=== PATIENT | male | born 1960 | race Caucasian/White ===

== ENCOUNTER 2016-11-04 17:26 | Emergency (ER) | payer MEDICAID ==
[~2016-11-04] VITALS: Ht 175.3 cm; Wt 93.0 kg
[~2016-11-04 17:26] MED LIST: ALBU6.7H INH; ASPI325T PO; CYMB60CA PO; GABA600T PO; HYDR-3535 PO; LANTUS2P SQ; LEVO25TA4 PO; LISI10TA3 PO; LOVA20TA PO; METF1000 PO; PRIL40CA PO; VALT500T PO
[2016-11-04 17:30] VITALS: BP 194/110; PULSE 70; RESP 16; TEMP 98.4; O2SAT 99
[2016-11-04] MEDS ORDERED: PROPARACAINE HCL 0.5% OPHT SOLN 15 ML BTL EACH EYE ONE (17:45)
[2016-11-04] MEDS ORDERED: OMEP40CA2 PO (17:50)
--- NOTE | 2016-11-04 17:53 | PD ---
HPI Chief Complaint: Eye Problems/Injury Time Seen by Provider: 17:48 Travel History International Travel<30 days: No Contact w/Intl Traveler<30days: No Traveled to known affect area: No History of Present Illness HPI 55-year-old male that presents to the ED for evaluation of injury to his right eye. Per patient he was trying to get the insect of his head and he accidentally cut himself with a putty knife. Per patient this happened about 3 hours ago. He states that he has intermittent pain in the eye. He is able to see but slightly blurry secondary to tearing. He states the pain is more with movement of the eye. No allergies to medication. No chest pain or shortness of breath. Other medical injuries reported. Tetanus up-to-date per patient. Pain is 8 out of 10. Does not use glasses or contacts. PFSH Past Medical History Hx Anticoagulant Therapy: Yes Arthritis: Yes Anxiety: Yes Depression: Yes Cancer: No Cardiovascular Problems: Yes (HTN, ON MEDS) High Cholesterol: Yes COPD: No (states uncertain ??) Cerebrovascular Accident: Yes Coronary Artery Disease: Yes Diabetes: Yes Diminished Hearing: No Endocrine: Yes Gastrointestinal Disorders: Yes (GERD) GERD: Yes Genitourinary: No Hepatitis: No Hiatal Hernia: No Hypertension: Yes Immune Disorder: No Musculoskeletal: Yes (BACK PAIN) Neurologic: Yes (STROKE 2010 DIFFICULTY WITH SPEECH) Psychiatric: Yes (DEPRESSION) Reproductive: No Respiratory: Yes Immunizations Current: Yes Thyroid Disease: Yes Ulcer: Yes Past Surgical History AICD: No Eye Surgery: Yes (LASIK, CATARACT SURGERY) Joint Replacement: No Pacemaker: No Tonsillectomy: Yes Other Surgery: Yes (HERNIA REPAIR) Social History Alcohol Use: No (QUIT 2012) Tobacco Use: No (QUIT 10/2014 and started back smokes 1/4 ppd cigs) Substance Use: Yes (MARIJUANA ) Allergies-Medications (Allergen,Severity, Reaction): Coded Allergies: No Known Allergies (Verified , 11/04/16) Reported Meds & Prescriptions Reported Meds & Active Scripts Active Aspirin 325 Mg Tab 325 Mg PO DAILY Lisinopril 10 Mg Tab 10 Mg PO Q12HR Valtrex (Valacyclovir HCl) 500 Mg Tab 1,000 Mg PO Q8HR 7 Days Reported Prilosec (Omeprazole) 40 Mg Cap 40 Mg PO DAILY Gabapentin 600 Mg Tab 600 Mg PO TID Lortab (Hydrocodone-Acetaminophen) 10-325 Mg Tab 1 Tab PO Q4H PRN Metformin (Metformin HCl) 1,000 Mg Tab 1,000 Mg PO BIDPC With meals Lovastatin 20 Mg Tab 20 Mg PO DAILY Levothyroxine (Levothyroxine Sodium) 25 Mcg Tab 25 Mcg PO DAILY Lantus Inj (Insulin Glargine) 1,000 Unit/10 Ml Vial 25 Units SQ BID Cymbalta DR (Duloxetine HCl) 60 Mg Capdr 60 Mg PO DAILY Proventil Hfa 6.7 GM Inh (Albuterol Sulfate) 90 Mcg/Act Aer 1 Puff INH Q4H PRN Review of Systems Except as stated in HPI: all other systems reviewed are Neg Physical Exam Narrative GENERAL: SKIN: Warm and dry. HEAD: Atraumatic. Normocephalic. EYES: Pupils equal and round 4 mm reactive to light and accommodation. No scleral icterus. No injection or drainage. EOM intact bilaterally. Peripheral vision intact bilaterally. Visual likely is 20/40 on the right and 20/20 on the left. Fluorescein stain revealed what appears to be a very superficial corneal abrasion on the 7:00 area of the cornea. About 2 mm in diameter. No foreign body noted. Ophthalmic exam reveals some papilledema or vessel disease. Of note patient does chronically have brown discoloration of his wrist between the 3:00 and 6:00 area of the iris. ENT: No nasal bleeding or discharge. Mucous membranes pink and moist. Tongue is midline. No uvula deviation. NECK: Trachea midline. No JVD. CARDIOVASCULAR: Regular rate and rhythm. RESPIRATORY: No accessory muscle use. Clear to auscultation. Breath sounds equal bilaterally. GASTROINTESTINAL: Abdomen soft, non-tender, nondistended. Hepatic and splenic margins not palpable. MUSCULOSKELETAL: Extremities without clubbing, cyanosis, or edema. No obvious deformities. NEUROLOGICAL: Awake and alert. No obvious cranial nerve deficits. Motor grossly within normal limits. Five out of 5 muscle strength in the arms and legs. Normal speech. PSYCHIATRIC: Appropriate mood and affect; insight and judgment normal. Data Data Last Documented VS Vital Signs Date Time Temp Pulse Resp B/P Pulse Ox O2 Delivery O2 Flow Rate FiO2 11/04/16 17:30 98.4 70 16 194/110 99 Orders Proparacaine 0.5% Opth Soln (Alcaine 0.5 (11/04/16 17:45) [facility] Medical Decision Making Medical Screen Exam Complete: Yes Emergency Medical Condition: Yes Medical Record Reviewed: Yes Differential Diagnosis corneal abrasion versus foreign body versus eye injury Narrative Course 55-year-old male that presents to the ED for evaluation of right eye injury. Patient was properly examined and was found to have signs and symptoms consistent appears to be a superficial corneal Abrasion. At this time I recommend prescription for erythromycin ointment applied to the wound to prevent infection. Close follow with PCP. Motrin for pain. Patient was told that the pain in the eye should improve in the next 24-48 hours. Follow-up with eye doctor if he doesn't. See ED for worsening symptoms. Diagnosis Primary Impression: Corneal abrasion, left Qualified Code: S05.02XA - Corneal abrasion, left, initial encounter Referrals: [place]ia Norton MD Patient Instructions: General Instructions Additional Instructions: Apply ointment as prescribed. Follow-up with PCP. See ED for worsening symptoms. Apply ice or warm compresses to the eye as needed. Motrin for pain as needed. Med/Other Pt SpecificInfo: Prescription(s) given Disposition: 01 DISCHARGE HOME Condition: Everette Stringer Nov 04, 2016 17:53
[2016-11-04] MEDS ORDERED: ERYTOIN10 RIGHT EYE (17:57)
== END 2016-11-04 18:04 | disposition home or self-care (01) ==
LOC: PHEFT 17:26
DX: S05.02XA Injury of conjunctiva and corneal abrasion without foreign body, left eye, initial encounter (principal); W26.0XXA Contact with knife, initial encounter
CPT/HCPCS: 99283

== ENCOUNTER 2017-01-12 06:54 | Inpatient (IN) | payer MEDICAID ==
[~2017-01-12] VITALS: Ht 175.3 cm; Wt 100.9 kg
[~2017-01-12 06:54] MED LIST changes: +ERYTOIN10 RIGHT EYE; +OMEP40CA2 PO; -PRIL40CA PO; -VALT500T PO
[2017-01-12 07:02] VITALS: BP 191/93; PULSE 76; RESP 18; TEMP 97.8; O2SAT 100
--- NOTE | 2017-01-12 07:25 | PD ---
HPI Chief Complaint: Skin Problem Time Seen by Provider: 07:15 Travel History International Travel<30 days: No Contact w/Intl Traveler<30days: No Traveled to known affect area: No History of Present Illness HPI The patient is a 56-year-old male who presents to the emergency department for finger pain. The patient thinks he suffered an injury to the volar aspect of the fourth digit, left hand, 2 days ago while cleaning debris. He now notes the affected finger is swollen with a necrotic area of the flexor surface. He does complain of increasing pain and swelling over the affected area. He now notes redness that is streaking up the medial aspect the left forearm to the antecubital fossa. He denies any fever, chills, or sweats. The patient does have a history of diabetes and takes insulin and metformin. The patient's primary physician is Dr. Jovi Arzola. The patient's symptoms are moderate, possibly exacerbated after an injury to the fourth digit of the left hand, there are no acute alleviating factors. PFSH Past Medical History Hx Anticoagulant Therapy: Yes Arthritis: Yes Anxiety: Yes Depression: Yes Cancer: No Cardiovascular Problems: Yes (HTN) High Cholesterol: Yes Cerebrovascular Accident: Yes Coronary Artery Disease: Yes Diabetes: Yes Patient Takes Glucophage: Yes Diminished Hearing: No Endocrine: Yes Gastrointestinal Disorders: Yes (GERD) GERD: Yes Genitourinary: No Hepatitis: No Hiatal Hernia: No Hypertension: Yes Immune Disorder: No Musculoskeletal: Yes (BACK PAIN) Neurologic: Yes (STROKE 2010 DIFFICULTY WITH SPEECH) Psychiatric: Yes (DEPRESSION) Reproductive: No Respiratory: Yes Immunizations Current: Yes Thyroid Disease: Yes Ulcer: Yes Influenza Vaccination: Yes Past Surgical History AICD: No Eye Surgery: Yes (LASIK, CATARACT SURGERY) Joint Replacement: No Pacemaker: No Tonsillectomy: Yes Other Surgery: Yes (HERNIA REPAIR) Social History Alcohol Use: No (QUIT 2012) Tobacco Use: No (QUIT 10/2014 and started back smokes 1/4 ppd cigs) Substance Use: Yes (MARIJUANA ) Allergies-Medications (Allergen,Severity, Reaction): Coded Allergies: No Known Allergies (Verified , 01/12/17) Reported Meds & Prescriptions Reported Meds & Active Scripts Active Aspirin 325 Mg Tab 325 Mg PO DAILY Lisinopril 10 Mg Tab 10 Mg PO Q12HR Reported Januvia (Sitagliptin Phosphate) 25 Mg Tab 25 Mg PO DAILY Omeprazole 40 Mg Cap 40 Mg PO DAILY Gabapentin 600 Mg Tab 600 Mg PO TID Lortab (Hydrocodone-Acetaminophen) 10-325 Mg Tab 1 Tab PO Q4H PRN Metformin (Metformin HCl) 1,000 Mg Tab 1,000 Mg PO BIDPC With meals Lovastatin 20 Mg Tab 20 Mg PO DAILY Levothyroxine (Levothyroxine Sodium) 25 Mcg Tab 25 Mcg PO DAILY Lantus Inj (Insulin Glargine) 1,000 Unit/10 Ml Vial 25 Units SQ BID Cymbalta DR (Duloxetine HCl) 60 Mg Capdr 60 Mg PO DAILY Proventil Hfa 6.7 GM Inh (Albuterol Sulfate) 90 Mcg/Act Aer 1 Puff INH Q4H PRN Review of Systems Except as stated in HPI: all other systems reviewed are Neg General / Constitutional: No: Fever, Chills Cardiovascular: No: Chest Pain or Discomfort Respiratory: No: Shortness of Breath Gastrointestinal: No: Nausea, Vomiting Musculoskeletal: Positive: Edema, Pain Neurologic: Positive: Sensory Disturbance (history of diabetic neuropathy) Endocrine: Positive: Other (diabetes on insulin and metformin) Physical Exam Narrative GENERAL: Awake, alert, pleasant 56-year-old male appears his stated age and is in no acute respiratory distress. SKIN: Focused skin assessment warm/dry. HEAD: Atraumatic. Normocephalic. EYES: Pupils equal and round. The right iris is multicolored. Pupils are 3 mm bilateral and reactive. ENT: No nasal bleeding or discharge. Mucous membranes pink and moist. NECK: Trachea midline. No JVD. CARDIOVASCULAR: Regular rate and rhythm. No murmur appreciated. RESPIRATORY: No accessory muscle use. Clear to auscultation. Breath sounds equal bilaterally. GASTROINTESTINAL: Abdomen soft, non-tender, nondistended. MUSCULOSKELETAL: The fourth digit of the left hand is erythematous, edematous compared to the other digits with a necrotic 1.5 cm diameter ulcerated area with skin intact over the flexor surface of the PIP. The patient is able flex the affected digit. Passive extension does not exacerbate his pain. Lymphadenitis with erythematous streaks of the medial aspect of the forearm just proximal to the left antecubital fossa noted. NEUROLOGICAL: Awake and alert. No obvious cranial nerve deficits. Motor grossly within normal limits. Normal speech. PSYCHIATRIC: Appropriate mood and affect; insight and judgment normal. Data Data Last Documented VS Vital Signs Date Time Temp Pulse Resp B/P (MAP) Pulse Ox O2 Delivery O2 Flow Rate FiO2 01/12/17 09:22 65 18 183/85 (117) 98 Room Air 01/12/17 07:02 97.8 Orders Orders Complete Blood Count With Diff (01/12/17 07:22) Comprehensive Metabolic Panel (01/12/17 07:22) Blood Culture (01/12/17 07:22) Finger ([id number]) (01/12/17 ) Lactic Acid (01/12/17 07:22) Sodium Chlor 0.9% 1000 Ml Inj (Ns 1000 M (01/12/17 07:30) Clindamycin Inj (Cleocin Inj) (01/12/17 07:30) Tetanus/Diphtheria Tox Adult (Tetanus/Di (01/12/17 07:30) Lidocaine Pf 1% Inj (Xylocaine-Mpf 1% In (01/12/17 08:45) Wound Culture And Gram Stain (01/12/17 08:39) Admit Order (Ed Use Only) (01/12/17 09:27) Labs Laboratory Tests Test 01/12/17 07:35 01/12/17 07:40 White Blood Count 8.9 TH/MM3 Red Blood Count 4.57 MIL/MM3 Hemoglobin 13.2 GM/DL Hematocrit 39.9 % Mean Corpuscular Volume 87.3 FL Mean Corpuscular Hemoglobin 28.9 PG Mean Corpuscular Hemoglobin Concent 33.1 % Red Cell Distribution Width 12.5 % Platelet Count 215 TH/MM3 Mean Platelet Volume 8.5 FL Neutrophils (%) (Auto) 67.2 % Lymphocytes (%) (Auto) 21.2 % Monocytes (%) (Auto) 5.0 % Eosinophils (%) (Auto) 5.5 % Basophils (%) (Auto) 1.1 % Neutrophils # (Auto) 6.0 TH/MM3 Lymphocytes # (Auto) 1.9 TH/MM3 Monocytes # (Auto) 0.4 TH/MM3 Eosinophils # (Auto) 0.5 TH/MM3 Basophils # (Auto) 0.1 TH/MM3 CBC Comment DIFF FINAL Differential Comment Blood Urea Nitrogen 15 MG/DL Creatinine 1.10 MG/DL Random Glucose 228 MG/DL Total Protein 6.7 GM/DL Albumin 3.4 GM/DL Calcium Level 8.6 MG/DL Alkaline Phosphatase 85 U/L Aspartate Amino Transf (AST/SGOT) 15 U/L Alanine Aminotransferase (ALT/SGPT) 29 U/L Total Bilirubin 0.3 MG/DL Sodium Level 134 MEQ/L Potassium Level 4.4 MEQ/L Chloride Level 97 MEQ/L Carbon Dioxide Level 32.2 MEQ/L Anion Gap 5 MEQ/L Estimat Glomerular Filtration Rate 70 ML/MIN Lactic Acid Level 1.0 mmol/L MDM Medical Decision Making Medical Screen Exam Complete: Yes Emergency Medical Condition: Yes Medical Record Reviewed: Yes Interpretation(s) X-ray reveals negative examination of the hand Laboratory Tests Test 01/12/17 07:35 01/12/17 07:40 White Blood Count 8.9 TH/MM3 Red Blood Count 4.57 MIL/MM3 Hemoglobin 13.2 GM/DL Hematocrit 39.9 % Mean Corpuscular Volume 87.3 FL Mean Corpuscular Hemoglobin 28.9 PG Mean Corpuscular Hemoglobin Concent 33.1 % Red Cell Distribution Width 12.5 % Platelet Count 215 TH/MM3 Mean Platelet Volume 8.5 FL Neutrophils (%) (Auto) 67.2 % Lymphocytes (%) (Auto) 21.2 % Monocytes (%) (Auto) 5.0 % Eosinophils (%) (Auto) 5.5 % Basophils (%) (Auto) 1.1 % Neutrophils # (Auto) 6.0 TH/MM3 Lymphocytes # (Auto) 1.9 TH/MM3 Monocytes # (Auto) 0.4 TH/MM3 Eosinophils # (Auto) 0.5 TH/MM3 Basophils # (Auto) 0.1 TH/MM3 CBC Comment DIFF FINAL Differential Comment Blood Urea Nitrogen 15 MG/DL Creatinine 1.10 MG/DL Random Glucose 228 MG/DL Total Protein 6.7 GM/DL Albumin 3.4 GM/DL Calcium Level 8.6 MG/DL Alkaline Phosphatase 85 U/L Aspartate Amino Transf (AST/SGOT) 15 U/L Alanine Aminotransferase (ALT/SGPT) 29 U/L Total Bilirubin 0.3 MG/DL Sodium Level 134 MEQ/L Potassium Level 4.4 MEQ/L Chloride Level 97 MEQ/L Carbon Dioxide Level 32.2 MEQ/L Anion Gap 5 MEQ/L Estimat Glomerular Filtration Rate 70 ML/MIN Lactic Acid Level 1.0 mmol/L Differential Diagnosis Differential diagnosis includes infected wound, infected joint, septic joint, retained foreign body, cellulitis, flexor tenosynovitis. Narrative Course IV was established, labs were drawn and sent, and the patient was placed on cardiac telemetry monitoring and continuous pulse oximetry monitoring. X-ray of the third digit left hand was obtained to rule out retained foreign body. The patient had blood cultures and lactic acid sent to lab. The patient was administered clindamycin, IV fluids and his tetanus shot was updated. I discussed the patient with the on-call hand surgeon, Dr. Gross, who recommends digital block and local debridement of the wound, he does not believe it is a flexor tenosynovitis as the patient is able flex infected wound and passive extension does not exacerbate his symptoms. Therefore, digital block was performed to the fourth digit of the left hand and an incision and drainage was made with debridement, wound culture was sent to lab. The on-call medical service was paged for admission. Physician Communication Physician Communication The on-call medical service was paged for 23 hour observation. I discussed the patient Dr. Espinoza who agrees with 23 hour observation. Diagnosis Primary Impression: Infected finger Additional Impression: Lymphangitis Admitting Information Admitting Physician Requests: Observation Condition: Stable Víctor Cunningham MD Jan 12, 2017 07:25
[2017-01-12] MEDS ORDERED: TETANUS/DIPHTHERIA TOXOID ADULT 0.5 ML VIAL IM ONE (07:30)
[2017-01-12] MEDS ORDERED: SODIUM CHLOR 0.9% 1000 ML INJ 1,000 ML IV ONE (07:30)
[2017-01-12] MEDS ORDERED: CLINDAMYCIN INJ 600 MG in SODIUM CHLORIDE 0.9% INJ 100 ML IV ONE (07:30)
[2017-01-12] MEDS ORDERED: SITA25 PO (07:33)
[2017-01-12 07:48] LABS: BASOPHIL # 0.1 TH/MM3 (0-0.2); BASOPHIL % 1.1 % (0.0-2.0); EOSINOPHIL # 0.5 TH/MM3 (0-0.4); EOSINOPHIL % 5.5 % (0.0-4.0); HEMATOCRIT 39.9 % (39.0-51.0); HEMO FLAGS DIFF FINAL; LYMPH % 21.2 % (9.0-44.0); LYMPHOCYTE # 1.9 TH/MM3 (1.0-4.8); MEAN CELL VOLUME 87.3 FL (80.0-100.0); MEAN CORPUSCULAR HEMOGLOBIN 28.9 PG (27.0-34.0); MEAN CORPUSCULAR HGB CONC 33.1 % (32.0-36.0); NEUT % 67.2 % (16.0-70.0); PLATELET COUNT 215 TH/MM3 (150-450); RED BLOOD COUNT 4.57 MIL/MM3 (4.50-5.90); RED CELL DISTRIBUTION WIDTH 12.5 % (11.6-17.2); WHITE BLOOD COUNT 8.9 TH/MM3 (4.0-11.0)
[2017-01-12 08:04] LABS: CHLORIDE 97 MEQ/L (98-107); POTASSIUM 4.4 MEQ/L (3.5-5.1); SODIUM (NA) 134 MEQ/L (136-145)
[2017-01-12 08:07] LABS: ANION GAP 5 MEQ/L (5-15); BICARBONATE 32.2 MEQ/L (21.0-32.0); BLOOD UREA NITROGEN 15 MG/DL (7-18)
[2017-01-12 08:10] LABS: ALT (GPT) 29 U/L (12-78); AST (GOT) 15 U/L (15-37); GLOMERULAR FILTRATION RATE 70 ML/MIN (>89)
[2017-01-12 08:12] LABS: TOTAL BILIRUBIN ADULT 0.3 MG/DL (0.2-1.0)
[2017-01-12 08:13] LABS: ALKALINE PHOSPHATASE 85 U/L (45-117)
[2017-01-12] MEDS ORDERED: LIDOCAINE HCL 1% PF 30 ML VIAL INFIL ONE (08:45)
--- NOTE | 2017-01-12 08:51 | RADRPT ---
EXAM DATE/TIME: 01/12/2017 08:00 [place] COMPARISON: FINGER LEFT 4TH DIGIT ([id number]), November 01, 2011, 21:27. INDICATIONS : Left anterior fourth digit pain after clearing debris. MEDICAL HISTORY : Hypertension. Chronic obstructive pulmonary disease. Hypercholesterolemia. Thyriod disease. Strok e. Neuropathy. CAD.GERD. Ulcer.Arthritis. Diabetic. SURGICAL HISTORY : Tonsillectomy. Hernia repair. Right second toe amputation. ENCOUNTER: Initial ACUITY: 2 days PAIN SCORE: 6/10 LOCATION: Left anterior fourth digit FINDINGS: Examination of the fourth digit of the left hand demonstrates no evidence of fracture or dislocation. No radiopaque foreign bodies are seen. The soft tissues are intact. CONCLUSION: 1. Negative examination of the hand. Miguel Willis MD on January 12, 2017 at 8:49 Board Certified Radiologist. This report was verified electronically.
[2017-01-12 09:22] VITALS: BP 183/85; PULSE 65; RESP 18; O2SAT 98
[2017-01-12] MEDS ORDERED: SODIUM CHLORIDE 0.9% FLUSH 10 ML FLUSH IV FLUSH PRN (09:45)
[2017-01-12] MEDS ORDERED: GLUCAGON 1 MG/ML VIAL OTHER PRN (09:45)
[2017-01-12] MEDS ORDERED: NALOXONE HCL 0.4 MG/ML AMP IV PUSH PRN (09:45)
[2017-01-12] MEDS ORDERED: DEXTROSE 50% IN WATER 50 ML VIAL(D50) IV PUSH PRN (09:45)
[2017-01-12] MEDS ORDERED: MAGNESIUM HYDROXIDE SUSP 30 ML CUP PO PRN (09:45)
[2017-01-12] MEDS ORDERED: ACETAMINOPHEN 325 MG TAB PO PRN (10:00)
[2017-01-12] MEDS ORDERED: ONDANSETRON HCL 4 MG/2 ML VIAL IVP PRN (10:00)
[2017-01-12] MEDS ORDERED: ACETAMINOPHEN/HYDROcodone 325 MG/5 MG TAB PO PRN (10:00)
[2017-01-12] MEDS ORDERED: SENNOSIDES 8.6 MG TAB PO PRN (10:00)
[2017-01-12] MEDS ORDERED: LACTULOSE SYRUP 20 GM/30 ML CUP PO PRN (10:00)
[2017-01-12] MEDS ORDERED: MORPHINE SULFATE 4 MG/ML INJ IV PUSH PRN (10:00)
[2017-01-12] MEDS ORDERED: BISACODYL 10 MG SUPP RECTAL PRN (10:00)
[2017-01-12] MEDS: CEFEPIME INJ 2,000 MG in SODIUM CHLORIDE 0.9% INJ 100 ML IV SCH ×2 (10:07→17:27)
[2017-01-12] MEDS: ENOXAPARIN SODIUM 40 MG/0.4 ML SYRINGE SQ SCH (10:07)
[2017-01-12 11:30] VITALS: BP 155/81; PULSE 68; RESP 20; TEMP 97.7; O2SAT 100
[2017-01-12] MEDS: INSULIN ASPART SUPPLEMENTAL SCALE SQ SCH ×3 (12:00→20:04)
[2017-01-12] MEDS: VANCOMYCIN INJ 1,250 MG in SODIUM CHLOR 0.9% 250 ML INJ 250 ML IV SCH ×2 (12:14→22:31)
--- NOTE | 2017-01-12 13:14 | HHI.HP ---
[facility], Admission Diagnosis infected finger with lymphangitis, IDDM Diagnoses: (1) Lymphangitis (2) Infected finger Travel History International Travel<30 Days: No Contact w/Intl Traveler <30 Da: No Traveled to Known Affected Are: No History of Present Illness This is a pleasant 56-year-old male with past medical history of type 2 diabetes, peripheral vascular disease, history of CVA who presents to the ER with a 2 day history of left fourth digit pain, redness. The patient states that he was cleaning debris out from his trailer 2 weeks ago and he states that he injured the left hand. It had been just a sore until 2 days ago when he started to get redness and pain. This morning he noticed he had streaking going up his left arm and so he presented to the ER. He has difficulty fully flexing the finger due to swelling and pain. He denies fever or chills. He said he has some scant drainage but that has resolved. No alleviating or provocative factors. Symptoms moderate. 10 point review systems otherwise negative. Past Family Social History Past Medical History Hypertension Hyperlipidemia Diabetes type 2 Peripheral artery disease Charcot's foot, left foot Chronic objective pulmonary disease History CVA Hypothyroidism Peripheral neuropathy Chronic back pain Past Surgical History Amputation of the right foot second digit Tonsillectomy Cataract surgery Hernia repair Allergies: Coded Allergies: No Known Allergies (Verified , 01/12/17) Social History He states he no longer smokes. He states he stopped drinking alcohol 20 years ago. Denies illicit drug use. Physical Exam Vital Signs Vital Signs Date Time Temp Pulse Resp B/P (MAP) Pulse Ox O2 Delivery O2 Flow Rate FiO2 01/12/17 11:30 97.7 68 20 155/81 (105) 100 01/12/17 10:54 01/12/17 09:22 65 18 183/85 (117) 98 Room Air 01/12/17 07:02 97.8 76 18 191/93 (125) 100 Physical Exam GENERAL: Well-nourished, well-developed patient. SKIN: Warm and dry. HEAD: Normocephalic. EYES: No scleral icterus. No injection or drainage. NECK: Supple, trachea midline. No JVD or lymphadenopathy. CARDIOVASCULAR: Regular rate and rhythm without murmurs, gallops, or rubs. RESPIRATORY: Breath sounds equal bilaterally. No accessory muscle use. GASTROINTESTINAL: Abdomen soft, non-tender, nondistended. EXTREMITIES: injury to the volar aspect of the fourth digit, left hand volar aspect of the fourth digit left hand over the PIP joint has a small half centimeter ulcer with clean base no drainage, the finger is swollen he is able to flex it somewhat, he also has a red streak going up the anterior surface of the left forearm. Left foot is deformed. Decreased dorsalis pedis pulses in bilateral feet. NEUROLOGICAL: Awake, alert, and oriented x 3. Non-focal. Laboratory Laboratory Tests Test 01/12/17 07:35 01/12/17 07:40 White Blood Count 8.9 Red Blood Count 4.57 Hemoglobin 13.2 Hematocrit 39.9 Mean Corpuscular Volume 87.3 Mean Corpuscular Hemoglobin 28.9 Mean Corpuscular Hemoglobin Concent 33.1 Red Cell Distribution Width 12.5 Platelet Count 215 Mean Platelet Volume 8.5 Neutrophils (%) (Auto) 67.2 Lymphocytes (%) (Auto) 21.2 Monocytes (%) (Auto) 5.0 Eosinophils (%) (Auto) 5.5 Basophils (%) (Auto) 1.1 Neutrophils # (Auto) 6.0 Lymphocytes # (Auto) 1.9 Monocytes # (Auto) 0.4 Eosinophils # (Auto) 0.5 Basophils # (Auto) 0.1 CBC Comment DIFF FINAL Differential Comment Blood Urea Nitrogen 15 Creatinine 1.10 Random Glucose 228 Total Protein 6.7 Albumin 3.4 Calcium Level 8.6 Alkaline Phosphatase 85 Aspartate Amino Transf (AST/SGOT) 15 Alanine Aminotransferase (ALT/SGPT) 29 Total Bilirubin 0.3 Sodium Level 134 Potassium Level 4.4 Chloride Level 97 Carbon Dioxide Level 32.2 Anion Gap 5 Estimat Glomerular Filtration Rate 70 Lactic Acid Level 1.0 Date/Time Source Procedure Growth Status 01/12/17 07:40 Blood Peripheral Aerobic Blood Culture Pending Received 01/12/17 07:40 Blood Peripheral Anaerobic Blood Culture Pending Received 01/12/17 09:50 Wound Finger Gram Stain Pending Received 01/12/17 09:50 Wound Finger Wound Culture Pending Received Result Diagram: 01/12/17 0735 01/12/17 0735 Imaging Last Impressions Finger X-Ray 01/12/17 0000 Signed Impressions: Service Date/Time: Thursday, January 12, 2017 08:00 - CONCLUSION: 1. Negative examination of the hand. MD Jus Keene VTE Risk Assessment Jus VTE Risk Assessment: No/Low Risk (score <= 1) Caprini Risk Assessment Model Point Value = 1 Point Value = 2 Point Value = 3 Point Value = 5 Age 41-60 Minor surgery BMI > 25 kg/m2 Swollen legs Varicose veins or History of unexplained or recurrent spontaneous Oral contraceptives or hormone replacement Sepsis (< 1 month) Serious lung disease, including pneumonia (< 1 month) Abnormal pulmonary function Acute myocardial infarction Congestive heart failure (< 1 month) History of inflammatory bowel disease Medical patient at bed rest Age 61-74 Arthroscopic surgery Major open surgery (> 45 min) Laparoscopic surgery (> 45 min) Malignancy Confined to bed (> 72 hours) Immobilizing plaster cast Central venous access Age >= 75 History of VTE Family history of VTE Factor V Leiden Prothrombin [id number] Lupus anticoagulant Anticardiolipin antibodies Elevated serum homocysteine Heparin-induced thrombocytopenia Other congenital or acquired thrombophilia Stroke (< 1 month) Elective arthroplasty Hip, pelvis, or leg fracture Acute spinal cord injury (< 1 month) Prophylaxis Regimen Total Risk Factor Score Risk Level Prophylaxis Regimen 0-1 Low Early ambulation 2 Moderate Order ONE of the following: *Sequential Compression Device (SCD) *Heparin 5000 units SQ BID 3-4 Higher Order ONE of the following medications: *Heparin 5000 units SQ TID *Enoxaparin/Lovenox 40 mg SQ daily (WT < 150 kg, CrCl > 30 mL/min) *Enoxaparin/Lovenox 30 mg SQ daily (WT < 150 kg, CrCl > 10-29 mL/min) *Enoxaparin/Lovenox 30 mg SQ BID (WT < 150 kg, CrCl > 30 mL/min) AND/OR *Sequential Compression Device (SCD) 5 or more Highest Order ONE of the following medications: *Heparin 5000 units SQ TID (Preferred with Epidurals) *Enoxaparin/Lovenox 40 mg SQ daily (WT < 150 kg, CrCl > 30 mL/min) *Enoxaparin/Lovenox 30 mg SQ daily (WT < 150 kg, CrCl > 10-29 mL/min) *Enoxaparin/Lovenox 30 mg SQ BID (WT < 150 kg, CrCl > 30 mL/min) AND *Sequential Compression Device (SCD) Assessment and Plan Assessment and Plan -Left fourth digit ulceration with infection and associated lymphangitis - Will admit for IV antibiotics vancomycin and cefepime, consult hand surgery. -Hypertension -Continue lisinopril -Diabetes type 2 - continue long-acting insulin, sliding scale insulin with Accu -Cheks -History CVA - hold aspirin in case he needs surgery -Peripheral neuropathy - continue Cymbalta and Neurontin -DVT prophylaxis with SCDs Sangita Espinoza MD Jan 12, 2017 13:14
[2017-01-12 15:27] VITALS: BP 158/83; PULSE 65; RESP 20; TEMP 97.3; O2SAT 96
[2017-01-12] MEDS: ACETAMINOPHEN/HYDROcodone 325 MG/7.5 MG TAB PO PRN ×2 (15:27→20:06)
[2017-01-12] MEDS: GABAPENTIN 300 MG CAP PO SCH (17:26)
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
[2017-01-12 20:00] VITALS: BP 196/100; PULSE 62; RESP 20; TEMP 97.9; O2SAT 95
[2017-01-12] MEDS: LISINOPRIL 10 MG TAB PO SCH (20:03)
[2017-01-12] MEDS: SODIUM CHLORIDE 0.9% FLUSH 10 ML FLUSH IV FLUSH SCH (20:03)
[2017-01-12] MEDS: DOCUSATE SODIUM 50 MG/SENNA 8.6 MG TAB PO SCH (20:03)
[2017-01-12] MEDS: INSULIN DETEMIR 100 UNITS/ML VIAL SQ SCH (20:04)
[2017-01-12] MEDS: POVIDONE IODINE 10% SOLN 118 ML BOTTLE TOPICAL SCH (21:00)
[2017-01-12] MEDS ORDERED: cloNIDine HCL 0.1 MG TAB PO ONE (21:00)
[2017-01-12] MEDS: POVIDONE IODINE 10% OINT 30 GM TUBE TOPICAL SCH (21:00)
[2017-01-13] VITALS: BP 157/85; PULSE 69; RESP 20; TEMP 97.9; O2SAT 98
[2017-01-13] MEDS: ACETAMINOPHEN/HYDROcodone 325 MG/7.5 MG TAB PO PRN ×2 (01:09→05:25)
[2017-01-13] MEDS: CEFEPIME INJ 2,000 MG in SODIUM CHLORIDE 0.9% INJ 100 ML IV SCH ×2 (01:09→08:58)
[2017-01-13 05:42] LABS: BASOPHIL # 0.1 TH/MM3 (0-0.2); BASOPHIL % 0.8 % (0.0-2.0); EOSINOPHIL # 0.6 TH/MM3 (0-0.4); EOSINOPHIL % 7.7 % (0.0-4.0); HEMATOCRIT 39.3 % (39.0-51.0); HEMO FLAGS DIFF FINAL; LYMPH % 40.1 % (9.0-44.0); MEAN CELL VOLUME 86.9 FL (80.0-100.0); MEAN CORPUSCULAR HEMOGLOBIN 30.2 PG (27.0-34.0); MEAN CORPUSCULAR HGB CONC 34.8 % (32.0-36.0); MONO % 9.2 % (0.0-8.0); NEUT % 42.2 % (16.0-70.0); PLATELET COUNT 235 TH/MM3 (150-450); RED BLOOD COUNT 4.52 MIL/MM3 (4.50-5.90); RED CELL DISTRIBUTION WIDTH 12.7 % (11.6-17.2); WHITE BLOOD COUNT 7.4 TH/MM3 (4.0-11.0)
[2017-01-13] MEDS ORDERED: LEVOTHYROXINE SODIUM 25 MCG TAB PO SCH (06:00)
[2017-01-13 07:00] LABS: BICARBONATE 30.1 MEQ/L (21.0-32.0); POTASSIUM 3.5 MEQ/L (3.5-5.1)
[2017-01-13 08:00] VITALS: BP 142/74; PULSE 64; RESP 18; TEMP 97.1; O2SAT 98
[2017-01-13] MEDS: ENOXAPARIN SODIUM 40 MG/0.4 ML SYRINGE SQ SCH (08:58)
[2017-01-13] MEDS: INSULIN DETEMIR 100 UNITS/ML VIAL SQ SCH (08:59)
[2017-01-13] MEDS: INSULIN ASPART SUPPLEMENTAL SCALE SQ SCH ×2 (08:59→12:42)
[2017-01-13] MEDS: SODIUM CHLORIDE 0.9% FLUSH 10 ML FLUSH IV FLUSH SCH (08:59)
[2017-01-13] MEDS: POVIDONE IODINE 10% SOLN 118 ML BOTTLE TOPICAL SCH (09:00)
[2017-01-13] MEDS: LISINOPRIL 10 MG TAB PO SCH (09:00)
[2017-01-13] MEDS ORDERED: DULoxetine HCl DR 60 MG CAP PO SCH (09:00)
[2017-01-13] MEDS ORDERED: PANTOPRAZOLE SOD 40 MG DELAYED RELEASE TAB PO SCH (09:00)
[2017-01-13] MEDS: POVIDONE IODINE 10% OINT 30 GM TUBE TOPICAL SCH (09:01)
[2017-01-13] MEDS: GABAPENTIN 300 MG CAP PO SCH ×2 (09:01→12:42)
[2017-01-13] MEDS: DOCUSATE SODIUM 50 MG/SENNA 8.6 MG TAB PO SCH (09:02)
[2017-01-13] MEDS: VANCOMYCIN INJ 1,250 MG in SODIUM CHLOR 0.9% 250 ML INJ 250 ML IV SCH (10:25)
[2017-01-13] MEDS ORDERED: LACTCHW3 CHEW (12:03)
[2017-01-13] MEDS ORDERED: CLIN1CAP6 PO (12:03)
[2017-01-13] MEDS ORDERED: DOXY100C PO (12:03)
--- NOTE | 2017-01-13 12:03 | HHI.PR ---
Subjective Remarks No finger pain, no fever. wants to go home. Objective Vitals Vital Signs Date Time Temp Pulse Resp B/P (MAP) Pulse Ox O2 Delivery O2 Flow Rate FiO2 01/13/17 08:00 97.1 64 18 142/74 (96) 98 01/13/17 00:00 97.9 69 20 157/85 (109) 98 01/12/17 20:00 97.9 62 20 196/100 (132) 95 01/12/17 15:27 97.3 65 20 158/83 (108) 96 I/O 01/12/17 01/12/17 01/12/17 01/13/17 01/13/17 01/13/17 07:00 15:00 23:00 07:00 15:00 23:00 Intake Total 2182.5 ml 100 ml 1320 ml 100 ml Balance 2182.5 ml 100 ml 1320 ml 100 ml Intake Oral 720 ml 960 ml IV Total 1462.5 ml 100 ml 360 ml 100 ml # Voids 1 3 # Bowel Movements 1 Result Diagram: 01/13/17 04301/13/17 043 Objective Remarks GENERAL: Well-nourished, well-developed patient. SKIN: Warm and dry. HEAD: Normocephalic. EYES: No scleral icterus. No injection or drainage. NECK: Supple, trachea midline. No JVD or lymphadenopathy. CARDIOVASCULAR: Regular rate and rhythm without murmurs, gallops, or rubs. RESPIRATORY: Breath sounds equal bilaterally. No accessory muscle use. GASTROINTESTINAL: Abdomen soft, non-tender, nondistended. EXTREMITIES: injury to the volar aspect of the fourth digit, left hand volar aspect of the fourth digit left hand over the PIP joint has a small half centimeter ulcer with clean base no drainage, the finger is no longer swollen he is able to flex it somewhat, no erythema of hand or arm, previous arm streaking resolved. NEUROLOGICAL: Awake, alert, and oriented x 3. Non-focal. A/P Problem List: (1) Lymphangitis ICD Code: I89.1 - Lymphangitis Status: Acute (2) Infected finger ICD Code: L08.9 - Local infection of the skin and subcutaneous tissue, unspecified Status: Acute Assessment and Plan -Left fourth digit ulceration with infection and associated lymphangitis - improved, no further redness or streaking. d/w dr. gross yesterday, DC home on PO abx, wtih wound care per Dr. Gross instructions, f/u with Dr. Gross in 1 week. Prelim culture with staph - will DC on 2 abx clinda and doxycycline, pt to call up to hospital tomorrow for sensitivity results. Sangita Espinoza MD Jan 13, 2017 12:03
== END 2017-01-13 13:35 | disposition home or self-care (01) | DRG 603 ==
LOC: PHED 06:54 → PHEDA 09:28 → OBSVTOIN 09:38 → PH3A 11:00
PROVIDERS: ADMIT Family Medicine; ATTEND Family Medicine
DX: I89.1 Lymphangitis (principal); E11.51 Type 2 diabetes mellitus with diabetic peripheral angiopathy without gangrene; Z79.4 Long term (current) use of insulin; Z79.84 Long term (current) use of oral hypoglycemic drugs; Z79.82 Long term (current) use of aspirin; Z86.73 Personal history of transient ischemic attack (TIA), and cerebral infarction without residual deficits; I10 Essential (primary) hypertension; E78.5 Hyperlipidemia, unspecified; J44.9 Chronic obstructive pulmonary disease, unspecified; E03.9 Hypothyroidism, unspecified; G62.9 Polyneuropathy, unspecified; M54.9 Dorsalgia, unspecified; G89.29 Other chronic pain; Z89.421 Acquired absence of other right toe(s); Z87.891 Personal history of nicotine dependence
CPT/HCPCS: 11000; 73140; 80048; 80053; 82948; 83605; 85025; 86403; 87040; 87070; 87147; 87186; 87205; 90471; 90714; 96365; J0692; J1650; J1815; J2270; J3370; J7030; J7050